=== PATIENT | male | born 1975 | race African-American/Black ===

== ENCOUNTER 2019-03-20 08:16 | Outpatient (CLI) | payer OTHER ==
[2019-03-20 09:27] VITALS: BP 120/60
--- NOTE | 2019-03-20 09:27 | SLEEP CARE CONSULTATION ---
Information from patient questionnaire entered by Parisa Velázquez. I have reviewed and concur with the information entered by Parisa Velázquez. This document represents the service I personally performed and the decisions made by me, Mirtha Wolf RN, MSN, [employer] SERVICE SPECIALIST. 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 ) Duration of Symptoms: 15 years Usual bedtime: 9:00-10:00 pm - bedtime at sea is 6-7pm Time it takes to fall asleep: 20-30 minutes Snores at night: Yes Observed to quit breathing while asleep: Yes Sleeps alone due to snoring: No Number of times waking at night: 1-2 Reasons for waking at night: reports: Bathroom, Other (About 2-3 times a week it is hard to return to sleep after waking. ) Toss, Turn, or Twitch while sleeping: Yes Recalls having dreams: Yes Usually gets out of bed at: 4:30-5:00 am when home but at sea it is about 3 am. Feels refreshed in the morning: No Morning headache: Yes (some mornings that is resolved with caffiene within an hour) Sleepy or fatigued during the day: Yes Ever fallen asleep while driving: No Takes day naps: Yes (sometimes on weekends for 1-3 hours about 1-2 times a month) Dreams during day naps: No Prior sleep studies: No - Parasomnia Symptoms Ever been unable to move upon waking from sleep: No Walks in sleep: No Talks in sleep: No Ever acted out dreams in sleep: No Ever felt weak in the knees when startled or emotional: No Problems with memory or concentration: No Subjective Initial [place] Sleepiness Scale score: 8 Past Medical History Past Medical History: denies: Hypertension, Dysphagia, Claustrophobia, Congestive Heart Failure, Diabetes, Stroke, Arthritis, Coronary Heart Disease, Insulin resistance, Gout, Arrythmia, Hypothyroidism, Fibromyalgia, Anemia, Anxiety, Impotence, Asthma, Depression, Emphysema, Mood disorder, GERD, Attention deficit, Other Social History 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 Patient is and lives in [place]. Have you smoked in the past 12 months: No Alcohol use: Yes Alcohol amount and frequency: 1-2 drinks 1-2 times/month Caffeine use: No Family History Family history of sleep disordered breathing: No Allergies and Home Medications Known drug allergies: No Home medication list reviewed: Yes Allergy and home medication list: Flexeril 10mg prn Review of Systems Weight gain over past 5 years: 5-10 Weight loss over past 5 years: 5-10 Cardiovascular: denies: high blood pressure, palpitations, chest pain, irregular heart rate or pulse, leg or foot swelling, have to sleep sitting up, other Respiratory: reports: chronic cough (response to environmental dust). denies: shortness of breath, wheeze, sputum production, other Gastrointestinal: denies: heartburn, difficulty swallowing, nausea, vomitting, diarrhea, abdominal pain, other Urinary: reports: frequency, urgency. denies: incontinence, impotence, other Neurological: reports: headaches. denies: seizure, head trauma, disorientation, speech dysfunction, gait or balance problems, fainting or unconsciousness, other Psychiatric: denies: Attention Deficit Hyperactivity, anxiety, depression, mood disorder, claustrophobia, other Ear/Nose/Throat: reports: nose bleeds (dependent upon dry environment. ), dry mouth/throat, wisdom teeth removed. denies: nasal congestion, sinus problems, hoarseness, injury to nose, tonsillectomy, other Endocrine: denies: thyroid disease, history of goiter, sluggishness, too hot or cold, excessive thirst, increased appetite, increased urination, unexplained weakness, other Musculoskeletal: reports: back pain (due to a previous injury ). denies: joint pain, neck pain, joint swelling, muscle pain or cramping, mobility problems, other Immunologic: denies: sneezing, rash, itching, allergies to food or environment, other Physical Exam Blood Pressure: 120/60 Cuff size: long Heart Rate: 79 O2 Saturation: 96 Height: 5 ft 8.5 in Weight (kg): 81.193 kg Body Mass Index: 26.8 BMI Classification: Overweight HEENT: No craniofacial malformation Nostrils: partially obstructed Turbinates: swollen (right nare swollen turbinate - chronic since sinusitis with difficulty breathing out of that nostril.) Septum: midline Mouth and throat: narrow oropharynx Soft palate: long Hard palate: normal Uvula: normal Uvula visualization: 25% Mallampati Class III Tongue: normal in size Tonsils: small Chin and jaw: normal size and position Neck: normal w/o lymphadenopathy or thyromegaly Heart: regular rate and rhythm Lungs: clear bilaterally Abdomen: non-tender Extremities: no edema or clubbing Neurologic: intact Impression and Plan 1. Suspected Obstructive Sleep Apnea-Hypopnea Syndrome, as suggested by a history of loud and irregular snoring, observed cessation of breath while asleep, morning headache, unrefreshed sleep, frequent waking at night and intermittent insomnia, cognitive impairment, and excessive daytime sleepiness that requires a nap on weekend. Narrow oropharynx and obesity are common predisposing factors for obstructive sleep apnea-hypopnea syndrome. I recommend proceeding to polysomnography to confirm the diagnosis and to assess severity. If the patient has significant sleep disordered breathing, a manual CPAP titration study may also be performed to find the optimal treatment pressure. I informed the patient of what the sleep studies involve and after some discussion, obtained agreement to proceed. The pathophysiology of obstructive sleep apnea-hypopnea syndrome was discussed with the patient and health risks of cardiovascular and cerebrovascular disease if not treated. AAS brochure for obstructive sleep apnea-hypopnea syndrome given and reviewed. Risks of drowsy driving discussed in detail and patient advised to avoid long distance driving and to warehouse puller at the first sign of drowsiness. Patient agreed to plan. * Schedule polysomnography +/- manual CPAP titration study. * Avoid long distance driving or driving when feeling sleepy. * Avoid alcohol, sedative and muscle relaxant around bedtime. * Attempt to lose weight. * Review of instructions provided by trained office staff on how to prepare for the sleep study. * Follow up with PCP for further evaluation of right nare obstruction - chronic since sinusitis * Return for follow-up after sleep study completed. I spent 100% of this 35 minute visit face to face with the patient with greater than 50% of this was spent time counseling the patient and coordination of care.
== END 2019-03-20 08:17 | disposition home or self-care (01) ==
LOC: SC 08:16
PROVIDERS: ATTEND Nurse Practitioner Family
DX: R06.83 Snoring (principal); R06.81 Apnea, not elsewhere classified; R51 Headache; G47.8 Other sleep disorders; G47.00 Insomnia, unspecified; R41.89 Other symptoms and signs involving cognitive functions and awareness; G47.10 Hypersomnia, unspecified
CPT/HCPCS: 99203; 99212

== ENCOUNTER 2019-04-24 20:17 | Outpatient (CLI) | payer OTHER | END 2019-04-24 20:18 | disposition home or self-care (01) | LOC: SC 20:17 | PROVIDERS: ATTEND Internal Medicine Pulmonary Disease | DX: G47.33 Obstructive sleep apnea (adult) (pediatric) (principal) | CPT/HCPCS: 95810 ==

== ENCOUNTER 2019-05-18 10:42 | Outpatient (CLI) | payer OTHER ==
[2019-05-18 11:54] VITALS: BP 118/70
--- NOTE | 2019-05-18 11:54 | SLEEP CARE CONSULTATION ---
Information from patient questionnaire entered by Elda Lee. I have reviewed and concur with the information entered by Elda Lee. This document represents the service I personally performed and the decisions made by me, Mirtha Wolf, RN, MSN, TRAIN CALLER. History of Present Illness Initial [place] Sleepiness Scale score: 8 Current [place] Sleepiness Scale score: 11 Additional HPI information: RAEANN AGUILA returns for follow up of the recently performed polysomnography and informed of the findings. I explained the pathophysiology behind obstructive sleep apnea. We then spent quite a bit of time discussing different treatment options. For mild obstructive sleep apnea, surgery and oral appliance are alternatives to nasal CPAP therapy but in moderate or severe cases, nasal CPAP is the most effective and reliable treatment. Because apnea is primarily in supine position, then positional management therapy could be effective. Methods discussed such as positioning with pillows, using a T-shirt with tennis balls in the back, and shown commercial products that have a pillow format on back to prevent supine sleep. I reviewed the impact of weight changes on sleep apnea and strongly recommended losing weight. After some discussion, the patient opted to go with the nasal CPAP therapy. Nasal autoCPAP set at [id number] will be ordered with rationale explained. A manual titration study will be ordered if unable to find optimal pressure with office adjustments. I explained how CPAP machine works with sample devices Respironics Dreamstation and ResMed [id number] and what to expect when using the machine. Using CPAP every night in order to get used to it was emphasized. Patient advised to put CPAP mask on before getting into bed so as not to fall asleep without CPAP. To assist acclimation to CPAP use, it could also be used for a short time during day while reading or watching TV. The patient was instructed to call the CPAP supplier to discuss any mechanical problem that may occur. If the mask given is uncomfortable or is difficult to keep on through the night even with adjustment, contact the CPAP supplier as many will replace with another mask style if notified before 30 days. If snoring or perceives is not getting enough air or too much air from the machine, notify this office. AAS patient education PAP tips reviewed and given to patient. He prefers the Respironics CPAP. Patient counseled not drink alcohol less than 4 hours before bedtime as it can increase snoring and apnea. Patient does not drink alcohol. Patient was cautioned about risks of drowsy driving until sleepiness symptoms resolve. Patient denies drowsy driving. [facility] patient education on snoring and sleep apnea given and reviewed at last Sleep Study - Polysomnography Polysomnography findings: The quality of the study is good. The patient had reduced sleep efficiency due to a prolonged awakening in the middle of the night. Despite moderate sleep fragmentation,, the sleep architecture was normal. Respiratory monitoring showed mild obstructive sleep apnea-hypopnea (AHI = 6.1) associated with frequent arousals, oxyhemoglobin desaturation and mild hypoxia (chikis oxygen saturation of 86%). The respiratory events occurred almost exclusively during supine sleep (supine AHI = 13.5; non-supine = 4.12). Snore was moderate to loud in intensity. There was no significant periodic leg movement of sleep. Cardiac rhythm was normal sinus rhythm without significant arrhythmia. No abnormal behavior (parasomnia) observed during the night. Allergies and Home Medications Known drug allergies: No Review of Systems Review of systems same as previous: No (GI consult next month. PCP seen for nare obstruction. ) Physical Exam Blood Pressure: 118/70 Cuff size: long Heart Rate: 82 O2 Saturation: 97 Height: 5 ft 8.5 in Weight: 186 lb Body Mass Index: 27.8 BMI Classification: Overweight Impression and Plan 1. Obstructive Sleep Apnea-Hypopnea Syndrome, mild, with lowest oxygen saturation of 86%. Possibly this is the cause of the patients symptoms of unrefreshed sleep, and excessive daytime sleepiness. As mentioned above, the patient will be started on nasal autoCPAP therapy with pressure set at 4-15 cmH2 O. A manual titration study will be completed if unable to find optimal treatment pressure with office adjustments. I showed him mask styles to answer questions and advised him to discuss his concerns at set up. Compliance guidelines also reviewed. A copy of compliance guidelines will be given for reference at check out. [Because the apnea is more severe supine, I instructed to avoid sleeping supine using pillow positioning until able to start CPAP use. * Nasal auto CPAP therapy, pressure at 4-15 cm H2O. * Attempt to lose weight. * Avoid alcohol consumption near bedtime. * Avoid supine sleep until using CPAP. * The patient is again cautioned about driving until sleepiness completely resolves. * Return one month after CPAP obtained. I will assess response to therapy and compliance at that time. I spent 100% of this 30 minute visit face to face with the patient with greater than 50% of this was spent time counseling the patient and coordination of care.
== END 2019-05-18 10:43 | disposition home or self-care (01) ==
LOC: SC 10:42
PROVIDERS: ATTEND Nurse Practitioner Family
DX: G47.33 Obstructive sleep apnea (adult) (pediatric) (principal)
CPT/HCPCS: 99212; 99214

== ENCOUNTER 2019-08-07 16:07 | Outpatient (CLI) | payer OTHER ==
[2019-08-07 17:34] VITALS: BP 130/80
--- NOTE | 2019-08-07 17:34 | SLEEP CARE CONSULTATION ---
Information from patient questionnaire entered by Elda Lee. I have reviewed and concur with the information entered by Elda Lee. This document represents the service I personally performed and the decisions made by me, Mirtha Wolf, RN, MSN, [facility]. History of Present Illness Previous diagnosis: Mild, Obstructive Sleep Apnea-Hypopnea Syndrome AHI: 6.1 Reason for follow up: first compliance Equipment type: CPAP Equipment obtained from: [facility] Mask style: Nasal pillows Mask brand: Resmed Backup mask available: No (keep current mask when replaced as a spare ) Last cushion change: none since set up but just recieved supplies. CPAP Compliance Data - Data Reviewed with Patient Average duration of nightly device use: 6.3 Compliance rate %: 100 Current pressure setting (cmH2O): 4-15 Humidity settin Heated hose setting: auto Average residual AHI: 2.9 Average large leak: 0.4 liter per minute Subjective Patient concerns: reports: condensation in mask/hose (nightly), dry mouth, nose, throat (oral venting occurs a few times and will have dry mouth), other (pulling off mask every other night. ). denies: aerophagia, mask discomfort, air blowing in eyes, mask leak noise, nasal congestion, epistaxis Observed to snore while using device: No Current pressure setting perceived as: too high On therapy, patient: reports: sleeping better, awakening more refreshed, being more awake and alert during the day, more rested overall. denies: drowsiness while driving Initial [place] Sleepiness Scale score: 8 Current [place] Sleepiness Scale score: 6 Allergies and Home Medications Known drug allergies: Yes Home medication list reviewed: Yes Allergy and home medication list: Flexeril 10mg prn - uses rarely Review of Systems Review of systems same as previous: No (He is being monitored for elevated blood pressure and checking at home bid) Physical Exam Blood Pressure: 130/80 Cuff size: long Heart Rate: 76 O2 Saturation: 96 Height: 5 ft 8.5 in Weight: 194 lb 9.6 oz (full fatigues and boots ) Body Mass Index: 29.1 BMI Classification: Overweight Impression and Plan 1. Obstructive Sleep Apnea-Hypopnea Syndrome, mild, with good treatment compliance and good apnea control. On CPAP therapy, the patient has better sleep quality, increased alertness and is more rested overall. He is able to stay awake longer and sleep longer. He is very pleased with benefit of treatment. To reduce condensation, I advised patient to reduce humidity and increase heated hose as discussed. Printed instructions given with rationale discussed. He is also to change his mask cushion regularly to maintain seal and comfort of mask. To reduce oral venting and waking to pressure feeling too high, I will reduce auto CPAP range to [id number]. He is to contact me if the pressure change does not resolve oral venting. The current autorange will allow weight loss that patient is working on. I explained how weight loss will reduce CPAP pressure needs. Hopefully the above changes will reduce him pulling off mask in sleep. Patient's apnea severity and rationale for treatment to reduce apnea, improve sleep quality and reduce cardiovascular and cerebrovascular events was reviewed. I also reviewed the benefit of consistent device use of CPAP for elevated blood pressure if due to untreated apnea. * * Change CPAP pressure to 4-11 cmH2O * adjust humidity and heated hose. * change mask cushion. * Notify me if snoring with mask or feeling that the pressure is too much or too little * Attempt to lose weight * Call this office if any problems using CPAP * Return for follow up in 3 months , or sooner if concerns arise Time Spent with Patient (minutes): 30 I spent 100% of this visit face to face with the patient with greater than 50% of this was spent time counseling the patient and coordination of care.
== END 2019-08-07 16:08 | disposition home or self-care (01) ==
LOC: SC 16:07
PROVIDERS: ATTEND Nurse Practitioner Family
DX: G47.33 Obstructive sleep apnea (adult) (pediatric) (principal)
CPT/HCPCS: 99212; 99214